=== PATIENT | female | born 1980 ===

== ENCOUNTER 2016-08-10 18:04 | Emergency (ER) | payer OTHER ==
[2016-08-10 18:05] VITALS: BMI 22.8
[2016-08-10 18:13] VITALS: TEMP 98.7
[2016-08-10] MEDS ORDERED: Sodium Chloride 0.9% 1,000 ML IV STA (18:41)
[2016-08-10 18:47] VITALS: RESP 18
[2016-08-10 18:59] LABS: URINE BILIRUBIN NEGATIVE (NEGATIVE); URINE BLOOD TRACE-LYSED (NEGATIVE); URINE GLUCOSE (UA) NEGATIVE (NEGATIVE); URINE KETONE NEGATIVE (NEGATIVE); URINE LEUKOCYTE ESTERASE SMALL Leu/uL (NEGATIVE); URINE PROTEIN NEGATIVE mg/dL (<30 mg/dL); URINE UROBILINOGEN 0.2 E.U./dL (<1 E.U./dL)
[2016-08-10] MEDS ORDERED: Iohexol 350 MG/100 ML VIAL ONE (18:59)
[2016-08-10 19:00] LABS: URINE APPEARANCE CLEAR (CLEAR); URINE COLOR YELLOW (YELLOW)
--- NOTE | 2016-08-10 19:01 | ED PDOC ---
Arrival/HPI - General Chief Complaint: Abdominal Pain Time Seen by Provider: 08/10/16 18:18 Historian: Patient - History of Present Illness Narrative History of Present Illness (Text): 08/10/16 19:01 36-year-old female presents today with diffuse abdominal pain and bloating that started this morning. Patient states the pain is localize and radiates to the left flank. Positive nausea and vomiting. Denies chest pain. Denies shortness of breath. Patient describes the pain as sharp and crampy and rates the pain as a 4 out of 10. patient denies fevers or chills. Denies sick contacts. pt with hx of kidney stones. states pain is slightly different from when she usually has the stones. denies urinary symptoms. Time/Duration: Other (this morning) Symptom Onset: Gradual Symptom Course: Worsening Quality: Stabbing, Cramping Severity Level: 4 Past Medical History - Provider Review Nursing Documentation Reviewed: Yes - Travel History Have you recently traveled outside [place] w/in the past 3 mons?: No - Infectious Disease Hx of Infectious Diseases: None - Tetanus Immunization Tetanus Immunization: Unknown - Reproductive Menopause: No - Cardiac Hx Cardiac Disorders: No - Pulmonary Hx Asthma: Yes - Neurological Hx Neurological Disorder: No - HEENT Hx HEENT Disorder: No - Renal Hx Renal Disorder: Yes Hx Kidney Stones: Yes - Endocrine/Metabolic Hx Endocrine Disorders: No - Hematological/Oncological Hx Blood Disorders: No - Integumentary Hx Dermatological Disorder: No - Musculoskeletal/Rheumatological Hx Musculoskeletal Disorders: No - Gastrointestinal Hx Gastrointestinal Disorders: No - Genitourinary/Gynecological Hx Genitourinary Disorders: No - Psychiatric Hx Psychophysiologic Disorder: No Hx Depression: No Hx Emotional Abuse: No Hx Physical Abuse: No Hx Substance Use: No - Past Surgical History Past Surgical History: No Previous - Anesthesia Hx Anesthesia: No Hx Anesthesia Reactions: No Hx Malignant Hyperthermia: No - Suicidal Assessment Feels Threatened In Home Enviroment: No Family/Social History - Physician Review Nursing Documentation Reviewed: Yes Family/Social History: Unknown Family HX Smoking Status: Never Smoked Hx Alcohol Use: No Hx Substance Use: No Hx Substance Use Treatment: No Allergies/Home Meds Allergies/Adverse Reactions: Allergies No Known Allergies Allergy (Verified 08/10/16 18:13) Review of Systems - Review of Systems Constitutional: absent: Fatigue, Fevers Respiratory: absent: SOB, Cough Cardiovascular: absent: Chest Pain, Palpitations Gastrointestinal: Abdominal Pain, Diarrhea, Nausea, Vomiting. absent: Constipation Genitourinary Female: absent: Dysuria, Frequency, Hematuria, Vaginal Bleeding, Vaginal Discharge Musculoskeletal: absent: Arthralgias, Back Pain, Neck Pain Skin: absent: Rash, Pruritis Neurological: absent: Headache, Dizziness Psychiatric: absent: Anxiety, Depression Physical Exam Vital Signs Reviewed: Yes Vital Signs Temp Pulse Resp BP Pulse Ox 08/10/16 23:07 75 18 121/62 98 08/10/16 21:19 73 18 118/70 96 08/10/16 18:47 98.7 F 94 H 18 126/82 98 08/10/16 18:10 98.7 F 94 H 16 126/82 97 Temperature: Afebrile Blood Pressure: Normal Pulse: Regular Respiratory Rate: Normal Appearance: Positive for: Well-Appearing, Non-Toxic, Comfortable Pain Distress: None Mental Status: Positive for: Alert and Oriented X 3 - Systems Exam Head: Present: Atraumatic Mouth: Present: Moist Mucous Membranes Neck: Present: Normal Range of Motion Respiratory/Chest: Present: Clear to Auscultation, Good Air Exchange. No: Respiratory Distress, Accessory Muscle Use Cardiovascular: Present: Regular Rate and Rhythm, Normal S1, S2. No: Murmurs Abdomen: Present: Tenderness, Distention, Normal Bowel Sounds. No: Peritoneal Signs, Rebound, Guarding Back: Present: Normal Inspection. No: CVA Tenderness, Midline Tenderness, Paraspinal Tenderness Upper Extremity: Present: Normal ROM Lower Extremity: Present: Normal ROM Neurological: Present: GCS=15 Skin: Present: Warm, Dry, Normal Color. No: Rashes Psychiatric: Present: Alert, Oriented x 3 Medical Decision Making ED Course and Treatment: 08/10/16 19:09 Patient is nontoxic well appearing with stable vital signs presenting with abdominal pain CBC wnl CMP wnl Urinalysis: trace blood; small leukocytes; no uti symptoms; will follow urine culture. CAT scan: FINDINGS: Lower thorax: No acute findings. ABDOMEN: Liver: No small focus of enhancement in the lateral segment left hepatic lobe, nonspecific and of doubtful significance. Gallbladder and bile ducts: Unremarkable. No calcified stones. No ductal dilation. Pancreas: Unremarkable. No mass. No ductal dilation. Spleen: Unremarkable. No splenomegaly. Adrenals: Unremarkable. No mass. Kidneys and ureters: Unremarkable. No solid mass. No hydronephrosis. Stomach and bowel: Unremarkable. No obstruction. No mucosal thickening. Appendix: Normal appendix. PELVIS: Bladder: Unremarkable. No mass. Reproductive: Recently ruptured right ovarian cyst or follicle. ABDOMEN and PELVIS: Intraperitoneal space: Unremarkable. No free air. No significant fluid collection. Bones/joints: No acute fracture. No dislocation. Soft tissues: Unremarkable. 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 No abdominal aortic aneurysm. Lymph nodes: Unremarkable. No enlarged lymph nodes. IMPRESSION: Recently ruptured right ovarian cyst or follicle. Patient reassessment:pt feeling better after toradol. Discussed all results with patient in depth/ will d/c home to f/u with pmd/gi and PERSONAL CAREGIVER. advised immediate return if symptoms worsen, persist or if new symptoms develop. Patient verbalizes understanding of discharge instructions and need for immediate followup. Impression: Abdominal pain, ovarian cyst rupture Motrin every 6 hours as needed for pain increase fluids Follow up with primary care physician within the next 2 days Follow up with the PERSONAL CAREGIVER within the next 2 days FOllow up with the GI doctor within the next 2 days. Return immediately if symptoms worsen persist or if new symptoms develop: High fevers, increasing pain, vomiting, diarrhea or any other concerning symptoms develop - Lab Interpretations Lab Results: 08/10/16 19:06 08/10/16 19:06 Lab Results 08/10/16 19:06: WBC 9.9 D, RBC 4.34, Hgb 12.7, Hct 37.0, MCV 85.3, MCH 29.3, MCHC 34.3, RDW 12.8, Plt Count 314, MPV 8.9, Gran % 61.1, Lymph % (Auto) 28.5, [place] % (Auto) 6.1 H, Eos % (Auto) 3.9, Baso % (Auto) 0.4, Gran # 6.03, Lymph # 2.8, [place] # 0.6, Eos # 0.4, Baso # 0.04 08/10/16 19:06: Sodium 139, Potassium 3.8, Chloride 101, Carbon Dioxide 25, Anion Gap 17, BUN 14, Creatinine 0.7, Est GFR ( Amer) > 60, Est GFR (Non- Af Amer) > 60, Random Glucose 81, Calcium 9.6, Total Bilirubin 0.7, AST 32, ALT 29, Alkaline Phosphatase 86, Total Protein 9.5 H, Albumin 4.7, Globulin 4.8, Albumin/Globulin Ratio 1.0 L, Amylase 110, Lipase 59 08/10/16 18:53: Urine Color Yellow, Urine Appearance Clear, Urine pH 6.0, Ur Specific [place] >= 1.030, Urine Protein Negative, Urine Glucose (UA) Negative, Urine Ketones Negative, Urine Blood Trace-lysed H, Urine Nitrate Negative, Urine Bilirubin Negative, Urine Urobilinogen 0.2, Ur Leukocyte Esterase Small H , Urine RBC 0 - 2, Urine WBC 1 - 3, Ur Epithelial Cells 1 - 3, Urine Bacteria Mod - RAD Interpretation Radiology Orders: 08/10/16 18:41 ABD & PELVIS IV CONTRAST ONLY [CT] Stat - Medication Orders Current Medication Orders: Discontinued Medications Sodium Chloride (Sodium Chloride 0.9%) 1,000 mls @ 999 mls/hr IV .Q1H1M STA Stop: 08/10/16 19:41 Last Admin: 08/10/16 19:00 Dose: 999 mls/hr Iohexol (Omnipaque 350 100 Ml) Confirm Administered Dose 350 mg .ROUTE .STK-MED ONE Stop: 08/10/16 19:00 Ketorolac Tromethamine (Toradol) 30 mg IVP STAT STA Stop: 08/10/16 19:45 Last Admin: 08/10/16 22:23 Dose: 30 mg Disposition/Present on Arrival - Present on Arrival Any Indicators Present on Arrival: No History of DVT/PE: No History of Uncontrolled Diabetes: No Urinary Catheter: No History of Decub. Ulcer: No History Surgical Site Infection Following: None - Disposition Have Diagnosis and Disposition been Completed?: Yes Diagnosis: Abdominal pain, Ovarian cyst rupture Disposition: HOME/ ROUTINE Disposition Time: 23:11 Patient Plan: Discharge Patient Problems: Current Active Problems Problem Status Onset Abdominal pain Acute Ovarian cyst rupture Acute Condition: GOOD Discharge Instructions (ExitCare): Ovarian Cyst (ED), Acute Abdominal Pain (ED) Additional Instructions: Motrin every 6 hours as needed for pain increase fluids Follow up with primary care physician within the next 2 days Follow up with the PERSONAL CAREGIVER within the next 2 days FOllow up with the GI doctor within the next 2 days. Return immediately if symptoms worsen persist or if new symptoms develop: High fevers, increasing pain, vomiting, diarrhea or any other concerning symptoms develop Prescriptions: Ibuprofen [Motrin] 600 mg PO Q6H PRN #20 tab PRN Reason: pain/fever reduction Referrals: Arya Brock MD [Primary Care Provider] - Follow up with primary Trung Easton DO [Staff Provider] - Follow up with primary Lucian Chin MD [Medical Doctor] - Follow up with primary Forms: WORK NOTE
[2016-08-10 19:07] LABS: ADD MANUAL DIFF? NO
[2016-08-10 19:10] LABS: BASO # 0.04 K/mm3 (0.0-2.0); BASO % 0.4 % (0.0-3.0); EOS # 0.4 (0.0-0.7); EOS % 3.9 % (1.5-5.0); GRAN # 6.03 (1.4-6.5); GRAN % 61.1 % (50.0-68.0); LYMPH # 2.8 (1.2-3.4); LYMPH % 28.5 % (22.0-35.0); MEAN CELL VOLUME 85.3 fL (80.0-105.0); MEAN CORPUSCULAR HEMOGLOBIN 29.3 pg (25.0-35.0); MEAN CORPUSCULAR HGB CONC 34.3 g/dl (31.0-37.0); MEAN PLATELET VOLUME 8.9 fl (7.0-11.0); MONO # 0.6 (0.1-0.6); MONO % 6.1 % (1.0-6.0); PLATELET COUNT 314 10^3/uL (120.0-450.0); RED CELL DISTRIBUTION WIDTH 12.8 % (11.5-14.5); WHITE BLOOD COUNT 9.9 10^3/ul (4.5-11.0)
[2016-08-10 19:12] LABS: URINE BACTERIA MOD (NEG); URINE RBC 0 - 2 /hpf (0-2)
[2016-08-10 19:21] LABS: ALKALINE PHOSPHATASE 86 U/L (38-133); ALT/SGPT 29 U/L (7-56); AMYLASE 110 U/L (35-125); AST/SGOT 32 U/L (15-39); BILIRUBIN,TOTAL 0.7 mg/dL (0.2-1.3); BLOOD UREA NITROGEN 14 mg/dL (7-21); CALCIUM 9.6 mg/dL (8.4-10.5); CARBON DIOXIDE 25 mmol/L (21-33); CHLORIDE 101 mmol/L (98-107); GFR AFRICAN-AMERICAN > 60; GLUCOSE,RANDOM 81 mg/dL (70-110); LIPASE 59 U/L (23-300); POTASSIUM 3.8 mmol/L (3.6-5.0); SODIUM 139 mmol/L (132-148); TOTAL PROTEIN 9.5 g/dL (5.8-8.3)
[2016-08-10 23:09] VITALS: BP 121/62; PULSE 75; O2SAT 98
--- NOTE | 2016-08-11 09:43 | CT ---
PROCEDURE: CT Abdomen and Pelvis with contrast HISTORY: abd pain COMPARISON: 04/05/2013 TECHNIQUE: Contrast dose: 100 cc of Omni 350 Radiation dose: Total exam DLP = 285 mGy-cm. This CT exam was performed using one or more of the following dose reduction techniques: Automated exposure control, adjustment of the mA and/or kV according to patient size, and/or use of iterative reconstruction technique. FINDINGS: LOWER THORAX: Unremarkable. LIVER: Unremarkable. No gross lesion or ductal dilatation. GALLBLADDER AND BILE DUCTS: Unremarkable. PANCREAS: Unremarkable. No gross lesion or ductal dilatation. SPLEEN: Unremarkable. ADRENALS: Unremarkable. No mass. KIDNEYS AND URETERS: Unremarkable. No hydronephrosis. No solid mass. VASCULATURE: Unremarkable. No aortic aneurysm. BOWEL: Unremarkable. No obstruction. No gross mural thickening. APPENDIX: Normal appendix. PERITONEUM: Unremarkable. No free fluid. No free air. LYMPH NODES: Unremarkable. No enlarged lymph nodes. BLADDER: Unremarkable. REPRODUCTIVE: There is a recently ruptured right ovarian cyst. There is an enhancing cyst wall. This can be seen on axial image 138. BONES: No acute fracture. OTHER FINDINGS: The report concurs with the preliminary [facility] report IMPRESSION: Recently ruptured right ovarian cyst. No evidence of appendicitis
== END 2016-08-10 23:32 | disposition home or self-care (01) ==
LOC: ED 18:04
DX: R10.9 Unspecified abdominal pain (principal); N83.201 Unspecified ovarian cyst, right side
CPT/HCPCS: 74177; 80053; 81001; 82150; 83690; 85025; 87086; 96361; 96374; 99285; J1885; J7040; Q9967

== ENCOUNTER 2017-01-28 18:52 | Emergency (ER) | payer MEDICAID, OTHER ==
[2017-01-28 18:53] VITALS: BMI 22.8
[2017-01-28] MEDS ORDERED: Sodium Chloride 0.9% 500 ML IV STA (19:12)
--- NOTE | 2017-01-28 19:18 | ED PDOC ---
Arrival/HPI - General Chief Complaint: Abdominal Pain Time Seen by Provider: 01/28/17 19:08 - History of Present Illness Narrative History of Present Illness (Text): 36 y/o female w/ pmhx of kidney stone sidedness nos , ovarian cyst sided nos , presents c/o left sided pelvic to llq pain , crampy in nature coinciding with the onset of her menses 5 days prior , + associated 2 episodes of nb/nb vomiting , as well as 2 episodes of diarrhea . Denying any distinct exacerbative nor palliative factors, although stooling and food di mildly exacerbate it once. Ongoing menses now. Dhas not been sexually active since it commenced. Denies radiation to her left sided cva region . Time/Duration: < week Symptom Course: Unchanged Quality: Aching Activities at Onset: Light Context: Other (aforementioned ) Past Medical History - Provider Review Nursing Documentation Reviewed: Yes - Travel History Have you recently traveled outside [place] w/in the past 3 mons?: No - Infectious Disease Hx of Infectious Diseases: None - Tetanus Immunization Tetanus Immunization: Unknown - Cardiac Hx Cardiac Disorders: No - Pulmonary Hx Asthma: Yes - Neurological Hx Neurological Disorder: No - HEENT Hx HEENT Disorder: No - Renal Hx Renal Disorder: Yes Hx Kidney Stones: Yes - Endocrine/Metabolic Hx Endocrine Disorders: No - Hematological/Oncological Hx Blood Disorders: No - Integumentary Hx Dermatological Disorder: No - Musculoskeletal/Rheumatological Hx Musculoskeletal Disorders: No - Gastrointestinal Hx Gastrointestinal Disorders: No - Genitourinary/Gynecological Hx Genitourinary Disorders: No - Psychiatric Hx Psychophysiologic Disorder: No Hx Depression: No Hx Emotional Abuse: No Hx Physical Abuse: No Hx Substance Use: No - Past Surgical History Past Surgical History: No Previous - Anesthesia Hx Anesthesia: No Hx Anesthesia Reactions: No Hx Malignant Hyperthermia: No - Suicidal Assessment Feels Threatened In Home Enviroment: No Family/Social History - Physician Review Nursing Documentation Reviewed: Yes Smoking Status: Never Smoked Hx Alcohol Use: No Hx Substance Use: No Hx Substance Use Treatment: No Allergies/Home Meds Allergies/Adverse Reactions: Allergies No Known Allergies Allergy (Verified 08/10/16 18:13) Home Medications: Home Meds Medication Instructions Recorded Confirmed No Known Home Med 01/28/17 01/28/17 Review of Systems - Review of Systems Constitutional: Normal Eyes: Normal ENT: Normal Respiratory: Normal Cardiovascular: Normal Gastrointestinal: Abdominal Pain (left sided pelvic pain radiating to llq), Diarrhea, Vomiting Genitourinary Female: Normal Musculoskeletal: Normal Skin: Normal Neurological: Normal Endocrine: Normal Hemo/Lymphatic: Normal Psychiatric: Normal Physical Exam Vital Signs Reviewed: Yes Vital Signs Temp Pulse Resp BP Pulse Ox 01/28/17 21:30 78 14 114/69 97 01/28/17 18:57 97.7 F 93 H 18 113/74 98 Temperature: Afebrile Blood Pressure: Normal Pulse: Regular Respiratory Rate: Normal Appearance: Positive for: Well-Appearing, Non-Toxic, Comfortable Pain Distress: None Mental Status: Positive for: Alert and Oriented X 3 - Systems Exam Head: Present: Atraumatic, Normocephalic Pupils: Present: PERRL Extroacular Muscles: Present: EOMI Conjunctiva: Present: Normal Mouth: Present: Moist Mucous Membranes Neck: Present: Normal Range of Motion Respiratory/Chest: Present: Clear to Auscultation, Good Air Exchange. No: Respiratory Distress, Accessory Muscle Use Cardiovascular: Present: Regular Rate and Rhythm, Normal S1, S2. No: Murmurs Abdomen: Present: Normal Bowel Sounds, Other (left sided pelvic pain >llq pain , n oluq nor cva ttp ). No: Tenderness, Distention, Peritoneal Signs Genitourinary/Pelvic Exam: Present: Normal External Genitalia, Other (no cmt, + nabothian cysts in cervix, no adnexal ttp ) Back: Present: Normal Inspection Upper Extremity: Present: Normal Inspection. No: Cyanosis, Edema Lower Extremity: Present: Normal Inspection. No: Edema Neurological: Present: GCS=15, CN II-XII Intact, Speech Normal, Motor Func Grossly Intact, Normal Sensory Function, Normal Cerebellar Funct, Norm Deep Tendon Reflexes Skin: Present: Warm, Dry, Normal Color. No: Rashes Psychiatric: Present: Alert, Oriented x 3, Normal Insight, Normal Concentration Medical Decision Making ED Course and Treatment: 01/28/17 19:19 Impression: A 36 year old female with left sided pelvic pain radiating to left lower quadrant, vomiting and diarrhea. Plan: -- US transvaginal -- labs -- IV fluids, Toradol, Zofran -- Urinalysis -- Reassess and disposition Prior Visits: Notes and results from previous visits were reviewed. Patient was last seen in the emergency department on 08/10/16 for evaluation of diffuse abdominal pain and bloating. Progress Notes: serial bowel exams corroborative of prior noted exam US Pelvis, Transvaginal FINDINGS: Uterus/cervix: Nabothian cysts in the cervix. Endometrial thickness measures up to 2.5 mm. 10.1 x 2.5 x 2.4 cm anterior fundal uterine fibroid noted. Heterogeneous appearance of the uterus. Right ovary: Unremarkable. Vascular flow is present. Left ovary: Unremarkable. Vascular flow is present. Free fluid: No evidence of free fluid in the submitted imgaes. IMPRESSION: Small fundal uterine fibroid. Vascular flow noted in the both ovaries Dictated and Authenticated by: Larry Matt MD 01/28/2017 8:25 PM Eastern Time ([place] & [place]) - Lab Interpretations Lab Results: 01/28/17 20:35 01/28/17 20:35 Lab Results 01/28/17 20:35: Beta HCG, Quant < 2.39 01/28/17 20:35: Sodium 143, Potassium 3.5 L, Chloride 102, Carbon Dioxide 31, Anion Gap 14, BUN 12, Creatinine 0.8, Est GFR ( Amer) > 60, Est GFR (Non- Af Amer) > 60, Random Glucose 91, Calcium 9.3, Total Bilirubin 0.5, AST 24, ALT 27, Alkaline Phosphatase 94, Total Protein 8.5 H, Albumin 4.6, Globulin 3.9, Albumin/Globulin Ratio 1.2 01/28/17 20:35: Urine Color Yellow, Urine Appearance Clear, Urine pH 6.0, Ur Specific [place] >= 1.030, Urine Protein Negative, Urine Glucose (UA) Negative, Urine Ketones Negative, Urine Blood Negative, Urine Nitrate Negative, Urine Bilirubin Negative, Urine Urobilinogen 0.2, Ur Leukocyte Esterase Negative, Urine HCG, Qual Negative 01/28/17 20:35: PT 11.4, INR 1.04, APTT 32.4 01/28/17 20:35: WBC 9.1, RBC 4.26, Hgb 12.3, Hct 36.5, MCV 85.7, MCH 28.9, MCHC 33.7, RDW 12.9, Plt Count 335, MPV 9.0, Gran % 51.4, Lymph % (Auto) 36.0 H, [place] % (Auto) 6.7 H, Eos % (Auto) 5.6 H, Baso % (Auto) 0.3, Gran # 4.66, Lymph # 3.3, [place] # 0.6, Eos # 0.5, Baso # 0.03 I have reviewed the lab results: Yes - RAD Interpretation Radiology Orders: 01/28/17 19:12 TRANSVAGINAL [US] Stat - Medication Orders Current Medication Orders: Discontinued Medications Sodium Chloride (Sodium Chloride 0.9%) 500 mls @ 1,000 mls/hr IV .Q30M STA Stop: 01/28/17 19:41 Last Admin: 01/28/17 20:50 Dose: 1,000 mls/hr eMAR Start Stop Document 01/28/17 20:50 [email or web address] (Rec: 01/28/17 20:50 [id number] Intravenous Solution Start Date 01/28/17 Start Time 20:50 End Date 01/28/17 Ketorolac Tromethamine (Toradol) 30 mg IVP STAT STA Stop: 01/28/17 19:14 Last Admin: 01/28/17 20:50 Dose: 30 mg MAR Pain Assessment Document 01/28/17 20:50 [email or web address] (Rec: 01/28/17 20:51 [id number] Pain Reassessment Is this a pain reassessment? No Sleep Is patient sleeping during reassessment? No Presence of Pain Presence of Pain Yes Pain Scale Used Pain Scale Used Numeric Location Pain Location Body Site Abdomen Description Description Constant Intensity of Pain at present 5 Pain Behavior Facial Grimacing Aggravating Factors Changing Position Alleviating Factors/Management Position Change Techniques Alleviating Factors Medication IVP Administration Document 01/28/17 20:50 [email or web address] (Rec: 01/28/17 20:51 [id number]) Charges for Administration # of IVP Administrations 1 Ondansetron HCl (Zofran Inj) 4 mg IVP STAT STA Stop: 01/28/17 19:14 Last Admin: 01/28/17 20:51 Dose: 4 mg IVP Administration Document 01/28/17 20:51 [email or web address] (Rec: 01/28/17 20:51 [id number]) Charges for Administration # of IVP Administrations 1 Disposition/Present on Arrival - Present on Arrival History of DVT/PE: No History of Uncontrolled Diabetes: No Urinary Catheter: No History of Decub. Ulcer: No History Surgical Site Infection Following: None - Disposition Referrals: Arya Brock MD [Primary Care Provider] - Follow up with primary Forms: Bluetest (Danish)
[2017-01-28 20:49] LABS: BASO # 0.03 K/mm3 (0.0-2.0); BASO % 0.3 % (0.0-3.0); EOS # 0.5 (0.0-0.7); EOS % 5.6 % (1.5-5.0); GRAN # 4.66 (1.4-6.5); GRAN % 51.4 % (50.0-68.0); HEMATOCRIT 36.5 % (36.0-48.0); LYMPH # 3.3 (1.2-3.4); MEAN CELL VOLUME 85.7 fl (80.0-105.0); MEAN CORPUSCULAR HEMOGLOBIN 28.9 pg (25.0-35.0); MEAN CORPUSCULAR HGB CONC 33.7 g/dl (31.0-37.0); MONO # 0.6 (0.1-0.6); MONO % 6.7 % (1.0-6.0); RED CELL DISTRIBUTION WIDTH 12.9 % (11.5-14.5); URINE BILIRUBIN NEGATIVE (NEGATIVE); URINE BLOOD NEGATIVE (NEGATIVE); URINE GLUCOSE (UA) NEGATIVE (NEGATIVE); URINE KETONE NEGATIVE (NEGATIVE); URINE LEUKOCYTE ESTERASE NEGATIVE Leu/uL (NEGATIVE); URINE PROTEIN NEGATIVE mg/dL (<30 mg/dL); URINE UROBILINOGEN 0.2 E.U./dL (<1 E.U./dL); WHITE BLOOD COUNT 9.1 10^3/ul (4.5-11.0)
[2017-01-28 20:57] LABS: URINE APPEARANCE CLEAR (CLEAR); URINE COLOR YELLOW (YELLOW)
[2017-01-28 20:58] LABS: ALB/GLOB RATIO 1.2 (1.1-1.8); ALKALINE PHOSPHATASE 94 U/L (38-126); ALT/SGPT 27 U/L (7-56); AST/SGOT 24 U/L (14-36); BILIRUBIN,TOTAL 0.5 mg/dL (0.2-1.3); BLOOD UREA NITROGEN 12 mg/dL (7-21); CALCIUM 9.3 mg/dL (8.4-10.5); CARBON DIOXIDE 31 mmol/L (21-33); CHLORIDE 102 mmol/L (98-107); GFR AFRICAN-AMERICAN > 60; GLUCOSE,RANDOM 91 mg/dL (70-110); POTASSIUM 3.5 mmol/L (3.6-5.0); SODIUM 143 mmol/L (132-148); TOTAL PROTEIN 8.5 g/dL (5.8-8.3)
[2017-01-28 21:07] LABS: INR 1.04 (0.93-1.08); PARTIAL THROMBOPLASTIN TIME 32.4 Seconds (25.1-36.5)
--- NOTE | 2017-01-28 23:41 | ED PDOC ---
Physical Exam Vital Signs Reviewed: Yes Vital Signs Temp Pulse Resp BP Pulse Ox 01/29/17 01:55 71 19 116/79 99 01/28/17 21:30 78 14 114/69 97 01/28/17 18:57 97.7 F 93 H 18 113/74 98 Temperature: Afebrile Blood Pressure: Normal Pulse: Regular Respiratory Rate: Normal Appearance: Positive for: Well-Appearing, Non-Toxic, Comfortable Pain Distress: None Mental Status: Positive for: Alert and Oriented X 3 Medical Decision Making ED Course and Treatment: 01/28/17 23:10 Case endorsed to me by Dr. Gee, pending CT scan, re-evaluation, and final disposition. 01/29/17 03:22 Reviewed radiology, CT Abdomen and Pelvis shows: Lower thorax: The bilateral lung bases are clear. ABDOMEN: Liver: No acute findings. Gallbladder and bile ducts: The gallbladder is decompressed. No calcified stones. No significant intra- or extrahepatic biliary ductal dilation. Pancreas: Enhances homogeneously. No ductal dilation. No discrete mass. Spleen: No acute findings. Adrenals: No acute findings. Kidneys and ureters: No acute findings. No hydronephrosis or renal calculi. No discrete solid mass. PELVIS: Bladder: No acute findings. Reproductive: Fundal fibroid. Appendix: The air filled appendix is of normal caliber (series 2, image 149; series 601, image 38). ABDOMEN and PELVIS: Stomach and bowel: No obstruction. No mucosal thickening. An oval-shaped focus of decreased attenuation is identified adjacent to the antimesenteric border of the sigmoid colon, with surrounding inflammatory change. This finding is best identified on series 2, image 141; series 602, image 109. This finding is suggestive of epiploic appendigitis, for which clinical correlation is needed. Peritoneum: No significant fluid collection. No free air. Lymph nodes: No pathologically enlarged lymph nodes. Vasculature: Unremarkable. Bones: No acute fracture. IMPRESSION: Findings suggestive of epiploic appendagitis within the left lower quadrant, for which clinical correlation is needed. - Lab Interpretations Lab Results: 01/28/17 20:35 01/28/17 20:35 Lab Results 01/28/17 20:35: Beta HCG, Quant < 2.39 01/28/17 20:35: Sodium 143, Potassium 3.5 L, Chloride 102, Carbon Dioxide 31, Anion Gap 14, BUN 12, Creatinine 0.8, Est GFR ( Amer) > 60, Est GFR (Non- Af Amer) > 60, Random Glucose 91, Calcium 9.3, Total Bilirubin 0.5, AST 24, ALT 27, Alkaline Phosphatase 94, Total Protein 8.5 H, Albumin 4.6, Globulin 3.9, Albumin/Globulin Ratio 1.2 01/28/17 20:35: Urine Color Yellow, Urine Appearance Clear, Urine pH 6.0, Ur Specific [place] >= 1.030, Urine Protein Negative, Urine Glucose (UA) Negative, Urine Ketones Negative, Urine Blood Negative, Urine Nitrate Negative, Urine Bilirubin Negative, Urine Urobilinogen 0.2, Ur Leukocyte Esterase Negative, Urine HCG, Qual Negative 01/28/17 20:35: PT 11.4, INR 1.04, APTT 32.4 01/28/17 20:35: WBC 9.1, RBC 4.26, Hgb 12.3, Hct 36.5, MCV 85.7, MCH 28.9, MCHC 33.7, RDW 12.9, Plt Count 335, MPV 9.0, Gran % 51.4, Lymph % (Auto) 36.0 H, [place] % (Auto) 6.7 H, Eos % (Auto) 5.6 H, Baso % (Auto) 0.3, Gran # 4.66, Lymph # 3.3, [place] # 0.6, Eos # 0.5, Baso # 0.03 - RAD Interpretation Radiology Orders: 01/28/17 19:12 TRANSVAGINAL [US] Stat 01/28/17 23:23 ABD PELVIS PO & IV CONTRAST [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 - Medication Orders Current Medication Orders: Discontinued Medications Sodium Chloride (Sodium Chloride 0.9%) 500 mls @ 1,000 mls/hr IV .Q30M STA Stop: 01/28/17 19:41 Last Admin: 01/28/17 20:50 Dose: 1,000 mls/hr eMAR Start Stop Document 01/28/17 20:50 [email or web address] (Rec: 01/28/17 20:50 [email or web address] [id number]) Intravenous Solution Start Date 01/28/17 Start Time 20:50 End Date 01/28/17 Ketorolac Tromethamine (Toradol) 30 mg IVP STAT STA Stop: 01/28/17 19:14 Last Admin: 01/28/17 20:50 Dose: 30 mg MAR Pain Assessment Document 01/28/17 20:50 [email or web address] (Rec: 01/28/17 20:[id number] Pain Reassessment Is this a pain reassessment? No Sleep Is patient sleeping during reassessment? No Presence of Pain Presence of Pain Yes Pain Scale Used Pain Scale Used Numeric Location Pain Location Body Site Abdomen Description Description Constant Intensity of Pain at present 5 Pain Behavior Facial Grimacing Aggravating Factors Changing Position Alleviating Factors/Management Position Change Techniques Alleviating Factors Medication IVP Administration Document 01/28/17 20:50 [email or web address] (Rec: 01/28/17 20:[id number]) Charges for Administration # of IVP Administrations 1 Ondansetron HCl (Zofran Inj) 4 mg IVP STAT STA Stop: 01/28/17 19:14 Last Admin: 01/28/17 20:51 Dose: 4 mg IVP Administration Document 01/28/17 20:51 [email or web address] (Rec: 01/28/17 20:[id number] Charges for Administration # of IVP Administrations 1 Ondansetron HCl (Zofran Inj) 4 mg IVP STAT STA Stop: 01/29/17 01:29 Last Admin: 01/29/17 01:59 Dose: 4 mg IVP Administration Document 01/29/17 01:59 [email or web address] (Rec: 01/29/17 01:[id number]) Charges for Administration # of IVP Administrations 1 Disposition/Present on Arrival - Present on Arrival Any Indicators Present on Arrival: No History of DVT/PE: No History of Uncontrolled Diabetes: No Urinary Catheter: No History of Decub. Ulcer: No History Surgical Site Infection Following: None - Disposition Have Diagnosis and Disposition been Completed?: Yes Diagnosis: Epiploic appendagitis Disposition: HOME/ ROUTINE Disposition Time: 04:00 Condition: GOOD Discharge Instructions (ExitCare): Acute Abdominal Pain (ED) Prescriptions: Ciprofloxacin [Cipro] 500 mg PO BID #14 tab Naproxen 375 mg PO BID #12 tablet Referrals: Arya Brock MD [Primary Care Provider] - Follow up with primary Forms: [employer] ([place])
[2017-01-29] MEDS ORDERED: Iohexol 240 (50 ml) ONE (00:17)
[2017-01-29 01:56] VITALS: O2SAT 99
[2017-01-29] MEDS ORDERED: Iohexol 350 MG/100 ML VIAL ONE (02:27)
--- NOTE | 2017-01-29 03:17 | CT ---
EXAM: CT Abdomen and Pelvis With Intravenous Contrast CLINICAL HISTORY: 36 years old, female; Pain; Abdominal pain; Additional info: Llq pain R/O colitis TECHNIQUE: Axial computed tomography images of the abdomen and pelvis with intravenous contrast. All CT scans at this facility use one or more dose reduction techniques, viz.: automated exposure control; ma/kV adjustment per patient size (including targeted exams where dose is matched to indication; i.e. head); or iterative reconstruction technique. Coronal and sagittal reformatted images were created and reviewed. CONTRAST: 100 mL of omnipaque administered intravenously. COMPARISON: CT - ABD PELVIS IV CONTRAST ONLY 2016-08-10 20:42 FINDINGS: Lower thorax: The bilateral lung bases are clear. ABDOMEN: Liver: No acute findings. Gallbladder and bile ducts: The gallbladder is decompressed. No calcified stones. No significant intra- or extrahepatic biliary ductal dilation. Pancreas: Enhances homogeneously. No ductal dilation. No discrete mass. Spleen: No acute findings. Adrenals: No acute findings. Kidneys and ureters: No acute findings. No hydronephrosis or renal calculi. No discrete solid mass. PELVIS: Bladder: No acute findings. Reproductive: Fundal fibroid. Appendix: The air filled appendix is of normal caliber (series 2, image 149; series 601, image 38). ABDOMEN and PELVIS: Stomach and bowel: No obstruction. No mucosal thickening. An oval-shaped focus of decreased attenuation is identified adjacent to the antimesenteric border of the sigmoid colon, with surrounding inflammatory change. This finding is best identified on series 2, image 141; series 602, image 109. This finding is suggestive of epiploic appendigitis, for which clinical correlation is needed. Peritoneum: No significant fluid collection. No free air. Lymph nodes: No pathologically enlarged lymph nodes. Vasculature: Unremarkable. Bones: No acute fracture. IMPRESSION: Findings suggestive of epiploic appendagitis within the left lower quadrant, for which clinical correlation is needed.
[2017-01-29 04:03] VITALS: BP 131/72; PULSE 65; RESP 16; TEMP 98.2
--- NOTE | 2017-01-31 12:48 | US ---
HISTORY: left sided ovarian cuyst COMPARISON: CT abdomen and pelvis performed on 08/10 2016. TECHNIQUE: Transvaginal pelvic ultrasound was performed. FINDINGS: UTERUS: Anteverted and normal in size. There is heterogeneous myometrial echotexture. There is a 3.1 x 2.5 x 3.4 cm intramural anterior fundal fibroid. ENDOMETRIUM: Measures 5.0 mm in diameter. Unremarkable. CERVIX: There are nabothian cysts in the cervix. RIGHT OVARY: Measures 2.5 x 1.8 x 2.6 cm. No solid mass. Normal flow. LEFT OVARY: Measures 2.8 x 1.4 x 2.3 cm. No solid mass. Normal flow. FREE FLUID: No significant free fluid noted. OTHER FINDINGS: None. IMPRESSION: 3.1 x 2.5 x 3.4 cm intramural anterior fundal fibroid. No evidence of ovarian cyst. No evidence of torsion. A preliminary report was provided by [email or web address].
== END 2017-01-29 04:03 | disposition home or self-care (01) ==
LOC: ED 18:52
DX: K63.89 Other specified diseases of intestine (principal)
CPT/HCPCS: 74177; 76830; 80053; 81003; 84702; 84703; 85025; 85610; 85730; 87086; 96374; 96375; 96376; 99284; J1885; J2405; J7040; Q9966; Q9967